=== PATIENT | male | born 1935 | race Caucasian/White ===

== ENCOUNTER → 2016-05-31 | Outpatient (CLI) | payer OTHER, MEDICARE ==
[~2016-05-31] MED LIST: ADVIN25/60 INH; ASPI81TA28 PO; CALC-354 PO; CLN200 PO; CLTP PO; FINA5TAB PO; FINA5TAB4 PO; FLM4 PO; GLCSC500400 PO; GLUC1CAP35 PO; INDA1TAB3 PO; INDA2.5T PO; METO25TA56 PO; MULT-506 PO; NTRGSL/4 UT; OMEG10007 PO; POTA10CA28 PO; SULI200T4 PO; TAMS0.4C38 PO; VALA1TAB31 PO
[2016-05-31 16:31] LABS: BASO % 0.6 %; BASO ABS # 0.04 K/uL (0-0.2); COMPLETE YES; EOS % 2.7 %; HEMATOCRIT 39.5 % (42-52); IG% 0.1 %; LYMPH % 34.6 %; LYMPH ABS # 2.35 K/uL (1.2-3.4); MEAN CELL VOLUME 87.2 fL (80-100); MEAN CORPUSCULAR HEMOGLOBIN 31.6 pg (25-34); MEAN CORPUSCULAR HGB CONC 36.2 g/dl (32-36); MONO % 9.3 %; NEUT % 52.7 %; PLATELET COUNT 155 K/uL (130-400); RED BLOOD COUNT 4.53 M/uL (4.7-6.1); WHITE BLOOD COUNT 6.79 K/uL (4.8-10.8)
[2016-05-31 16:41] LABS: URINE APPEARANCE CLEAR (CLEAR); URINE BILIRUBIN NEG (NEG); URINE COLOR YELLOW; URINE NITRITE NEG (NEG); URINE SPECIFIC GRAVITY 1.024 (1.000-1.030); UROBILINOGEN NEG (NEG)
[2016-05-31 16:44] LABS: MANUAL MICROSCOPIC REQUIRED? NO; REVIEW REQ? NO
[2016-05-31 16:45] LABS: BLOOD UREA NITROGEN 20 mg/dl (7-18); BUN/CREATININE RATIO 16.9 (10-20); CALCIUM 9.2 mg/dl (8.5-10.1); CARBON DIOXIDE 27 mmol/L (21-32); CHLORIDE 105 mmol/L (98-107); GLUCOSE 118 mg/dl (70-99); POTASSIUM 3.5 mmol/L (3.5-5.1); SODIUM 142 mmol/L (136-145)
[2016-06-01 06:24] LABS: ESTIMATED AVERAGE GLUCOSE 137 mg/dl; HA1C FLAG Normal (Normal)
== END | disposition home or self-care (01) ==
LOC: C.LAB1850 14:38
PROVIDERS: ATTEND Internal Medicine
DX: E11.9 Type 2 diabetes mellitus without complications (principal)

== ENCOUNTER 2016-08-28 10:26 | Emergency (ER) | payer OTHER, MEDICARE ==
[~2016-08-28] VITALS: Ht 177.8 cm; Wt 78.8 kg
[~2016-08-28 10:26] MED LIST changes: -CALC-354 PO; -FINA5TAB4 PO; -GLUC1CAP35 PO; -INDA2.5T PO; -SULI200T4 PO; -TAMS0.4C38 PO; -VALA1TAB31 PO
[2016-08-28 10:40] VITALS: TEMP 36.5; Ht 177.8 cm; Wt 78.8 kg
[2016-08-28] MEDS ORDERED: VALA1TAB31 PO (11:19)
[2016-08-28 11:24] VITALS: BP 128/67; PULSE 58; O2SAT 92
[2016-08-28] MEDS ORDERED: CALC-354 PO (11:26)
[2016-08-28] MEDS ORDERED: NTRGSL/4 UT (11:26)
[2016-08-28] MEDS ORDERED: MULT-506 PO (11:26)
[2016-08-28] MEDS ORDERED: INDA2.5T PO (11:26)
[2016-08-28] MEDS ORDERED: FINA5TAB4 PO (11:26)
[2016-08-28] MEDS ORDERED: GLUC1CAP35 PO (11:26)
[2016-08-28] MEDS ORDERED: POTA10CA28 PO (11:26)
[2016-08-28] MEDS ORDERED: ADVIN25/60 INH (11:26)
[2016-08-28] MEDS ORDERED: METO25TA56 PO (11:26)
[2016-08-28] MEDS ORDERED: ASPI81TA28 PO (11:26)
[2016-08-28] MEDS ORDERED: TAMS0.4C38 PO (11:26)
[2016-08-28] MEDS ORDERED: SULI200T4 PO (11:26)
[2016-08-28] MEDS ORDERED: OMEG10007 PO (11:26)
--- NOTE | 2016-08-28 11:29 | EMERGENCY ROOM VISIT NOTE ---
ED Visit Note First contact with patient: 10:49 Patient seen and evaluated bedside with physician podiatric assistant. Discussed diagnosis, treatment, and plan. Agree with physician podiatric assistant's assessment and plan at this time. All questions answered bedside for the patient and he was agreeable with plan. Discussed symptoms watch and return for.
--- NOTE | 2016-09-07 17:58 | EMERGENCY ROOM VISIT NOTE ---
History First contact with patient: 10:49 Chief Complaint: RASH Stated Complaint: RASH AROUND BELT AREA History of Present Illness The patient is a 81 year old white male who presents to the Emergency Room with complaints of any rash on the right side of his body extending from his groin to his low back. Symptoms started yesterday. The rash has become worse today. He states he did go to Dr. Aguilar's office and was referred to the ER for management. He denies any pain at this time. He states he has had shingles vaccine. No prior history of shingles. 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 He denies any other cold symptoms. He denies any stress. No fevers. He denies any other complaints. Review of Systems REVIEW OF SYSTEM: HEENT: No dizziness, visual problems, hearing loss, or tinnitus. There is no difficulty swallowing and no oral lesions are present. LYMPH: No adenopathy. PULMONARY: No cough, shortness of breath, sputum production or hemoptysis. CARDIOVASCULAR: No chest pain, shortness of breath or peripheral edema. GASTROINTESTINAL: No diarrhea, constipation, nausea, vomiting, or abdominal pain. GENITOURINARY: No dysuria, frequency, urgency or nocturia. NEUROLOGIC: No weakness, muscle tenderness, epilepsy or history of neurological problems. MUSCULOSKELETAL: No history of joint tenderness/swelling. Positive history of arthritis and arthralgias. SKIN: No rashes or lesions. PSYCHIATRIC: Positive history of anxiety. ENDOCRINE: No history of thyroid disorders, or abnormal hair growth. Past Medical/Surgical History Medical Problems: (1) Anxiety disorder (2) Atrial fibrillation (3) Borderline diabetes (4) BPH (benign prostatic hyperplasia) (5) CAD (coronary artery disease) (6) Dyslipidemia (7) History of spinal stenosis (8) HTN (hypertension) (9) Multinodular thyroid (10) Prinzmetal angina (11) SBO (small bowel obstruction) (12) Spinal stenosis, lumbar Surgical Problems: (1) History of lumbar surgery Family History Diabetes mellitus FH: cancer FH: heart disease Hypertension Social History Smoking Status: Never Smoker Smokeless Tobacco Use: No Alcohol Use: none Drug Use: none Marital Status: Housing Status: lives with significant other Occupation Status: retired Current/Historical Medications Scheduled Aspirin (Aspirin Ec), 81 MG PO DAILY Calcium Carbonate-Cholecalcife (Caltrate 600+D), 1 TAB PO DAILY Finasteride (Proscar), 5 MG PO QPM Fish Oil ([place]-3), 1 CAP PO QAM Fluticasone Prop/Salmeterol (Advair Diskus 250/50 60 Dose), 1 PUFF INH BID Rfnodurnkow-Dnenmskgewn-Lrc C- (Glucosamine Chondroitin), 1 CAP PO BID Indapamide (Indapamide), 1 TAB PO QAM Metoprolol Tartrate (Lopressor) (Lopressor), 25 MG PO BID Multivitamin (Multivitamin), 1 TAB PO DAILY Nitroglycerin (Nitrostat), 0.4 MG UT PRN Potassium Chloride (Micro-K Ext Rel), 10 MEQ PO BID Sulindac ([place]or[place]), 200 MG PO BID Tamsulosin Hcl (Flomax), 0.4 MG PO HS Allergies Coded Allergies: Calcium Channel Blockers (Verified Allergy, Mild, CHEST PAIN, 05/18/16) Amoxicillin (Unverified Allergy, Unknown, UPSET STOMACH, 05/18/16) Clavulanic Acid (Unverified Allergy, Unknown, UPSET STOMACH, 05/18/16) Statins (Verified Allergy, Unknown, increased ck levels, muscle pain, 05/18) Physical Exam Vital Signs Date Time Temp Pulse Resp B/P (MAP) Pulse Ox O2 Delivery O2 Flow Rate FiO2 08/28/16 11:24 58 20 128/67 92 Room Air 08/28/16 10:40 36.5 62 18 142/74 96 Room Air Pain Rating (0-10): 0 Physical Exam Gen.: Well-developed, well-nourished, elderly white male, in no acute distress. Laying on a bed. Somewhat hard of hearing. Pleasant. Skin:Warm and dry with fair turgor. Rashes present along the lower abdomen into the groin, extending along the side and into the low back. It follows a generalized T12 dermatome pattern and does not cross midline front or back. No other areas of involvement. Small macules without full vesicles. There do appear to be a few that are a vesicular type appearance. They do hillary. No ecchymosis or edema. The patient is not diaphoretic. No abrasions. Heart: Heart RRR. No MGR. Peripheral pulses are 2+. Lungs: Lungs are clear to auscultation. No crackles rhonchi or wheezing. Good air movement. The patient is able to take a deep breath. Abdomen: Abdomen was inspected, auscultated, and palpated. Bowel sounds present x 4. Soft, nontender to palpation. No hepato-splenomegaly. No masses noted. No CVA tenderness. Musculoskeletal: No pain with palpation over the spine. Gross motor function of the upper and lower extremities is intact and unremarkable. Neurologic: Gross sensation is intact across the upper and lower extremities by soft touch. Medical Decision & Procedures ED Course Patient and his were educated regarding today's findings. Conservative care measures were discussed. Likelihood of shingles was discussed. His reaction may be needed or blunted because of the previous shingles vaccine. He does not have the typical herpetic pain. I will start him on Valtrex 3 times a day. Prescription was provided. He may also use Benadryl every 6 hours and Zantac once per day to help with his pruritus. Avoid scratching the rash. Follow-up with his PCP for reexamination. Return to the ED for any acute worsening of symptoms or acute pain. Importance of avoiding immunocompromised individuals, women, and very young children was discussed. Patient was seen in conjunction with Dr. Shah, who also evaluated the patient and concurred with today's diagnosis and treatment plan. Medical Decision Possibility of viral exanthem, shingles, contact dermatitis, food reaction, and heat rash were considered. Impression Primary Impression: Shingles outbreak Departure Information Dispostion Home / Self-Care Condition FAIR Forms BENADRYL USE, WORK / SCHOOL INSTRUCTIONS, HOME CARE DOCUMENTATION FORM, IMPORTANT VISIT INFORMATION Patient Instructions Shingles Herpes Zoster, [facility] Additional Instructions valtrex daily avoid scratching the rash. Benadryl 25 mg every 6 hours as needed for itch Zantac 150 mg once a day as needed for itch Avoid contact with women, infants, and immunocompromised, such as chemotherapy patients Follow-up with your PCP this week for reexamination Return to the ED for any other concerns or worsening symptoms Problem Qualifiers Primary Impression: Shingles outbreak Herpes zoster complications: without complications Qualified Codes: B02.9 - Zoster without complications
== END 2016-08-28 11:35 | disposition home or self-care (01) ==
LOC: C.EDB 10:29 → C.EDC 11:35
DX: B02.9 Zoster without complications (principal); F41.9 Anxiety disorder, unspecified; I48.91 Unspecified atrial fibrillation; R73.03 Prediabetes; N40.0 Benign prostatic hyperplasia without lower urinary tract symptoms; I25.10 Atherosclerotic heart disease of native coronary artery without angina pectoris; E78.5 Hyperlipidemia, unspecified; I10 Essential (primary) hypertension; Z83.3 Family history of diabetes mellitus; Z80.9 Family history of malignant neoplasm, unspecified; Z82.49 Family history of ischemic heart disease and other diseases of the circulatory system; Z79.82 Long term (current) use of aspirin; Z79.899 Other long term (current) drug therapy

== ENCOUNTER → 2016-09-13 | Outpatient (CLI) | payer OTHER, MEDICARE ==
[~2016-09-13] MED LIST changes: +CALC-354 PO; -CLN200 PO; -CLTP PO; -FINA5TAB PO; +FINA5TAB4 PO; -FLM4 PO; -GLCSC500400 PO; +GLUC1CAP35 PO; -INDA1TAB3 PO; +INDA2.5T PO; +SULI200T4 PO; +TAMS0.4C38 PO
[2016-09-14 06:51] LABS: ESTIMATED AVERAGE GLUCOSE 128 mg/dl; HA1C FLAG Normal (Normal)
== END | disposition home or self-care (01) ==
LOC: C.LAB1850 15:19
PROVIDERS: ATTEND Internal Medicine
DX: E11.9 Type 2 diabetes mellitus without complications (principal)

== ENCOUNTER → 2017-01-31 | Outpatient (CLI) | payer OTHER, MEDICARE ==
[2017-01-31 10:39] LABS: BASO % 0.6 %; BASO ABS # 0.04 K/uL (0-0.2); COMPLETE YES; EOS % 1.5 %; HEMATOCRIT 41.5 % (42-52); IG% 0.3 %; LYMPH ABS # 2.34 K/uL (1.2-3.4); MEAN CELL VOLUME 87.9 fL (80-100); MEAN CORPUSCULAR HEMOGLOBIN 31.1 pg (25-34); MEAN CORPUSCULAR HGB CONC 35.4 g/dl (32-36); MEAN PLATELET VOLUME 10.5 fL (7.4-10.4); MONO % 7.5 %; NEUT % 56.1 %; PLATELET COUNT 167 K/uL (130-400); RED BLOOD COUNT 4.72 M/uL (4.7-6.1); WHITE BLOOD COUNT 6.89 K/uL (4.8-10.8)
[2017-01-31 10:53] LABS: ALT/SGPT 35 U/L (12-78); AST/SGOT 28 U/L (15-37); BLOOD UREA NITROGEN 14 mg/dl (7-18); BUN/CREATININE RATIO 11.3 (10-20); CARBON DIOXIDE 29 mmol/L (21-32); CHLORIDE 100 mmol/L (98-107); CREATININE 1.27 mg/dl (0.60-1.40); GLUCOSE 117 mg/dl (70-99); POTASSIUM 3.5 mmol/L (3.5-5.1); SODIUM 134 mmol/L (136-145); URIC ACID 5.5 mg/dl (2.6-7.2)
[2017-01-31 11:04] LABS: CHOLESTEROL 193 mg/dl (0-200); CHOLESTEROL/HDL RATIO 5.4; HDL CHOLESTEROL 36 mg/dl; LDL CHOLESTEROL CALCULATED 132 mg/dl; PROSTATE SPECIFIC ANTIGEN 0.768 ng/ml (0.000-4.000); TRIGLYCERIDES 125 mg/dl (0-150); VERY LOW DENSITY LIPOPROT CALC 25 mg/dl
[2017-01-31 11:05] LABS: URINE APPEARANCE CLEAR (CLEAR); URINE BILIRUBIN NEG (NEG); URINE COLOR YELLOW; URINE NITRITE NEG (NEG); URINE PH 6.5 (4.5-7.5); URINE SPECIFIC GRAVITY 1.014 (1.000-1.030); UROBILINOGEN NEG (NEG)
[2017-01-31 11:36] LABS: ESTIMATED AVERAGE GLUCOSE 131 mg/dl; HA1C FLAG Normal (Normal)
[2017-01-31 14:32] LABS: MANUAL MICROSCOPIC REQUIRED? NO; REVIEW REQ? NO
== END | disposition home or self-care (01) ==
LOC: C.LAB1850 08:58
PROVIDERS: ATTEND Internal Medicine
DX: N40.1 Benign prostatic hyperplasia with lower urinary tract symptoms (principal); M48.00 Spinal stenosis, site unspecified

== ENCOUNTER → 2017-06-24 | Outpatient (CLI) | payer OTHER, MEDICARE ==
[2017-06-24 12:57] LABS: HEMOGLOBIN A1C 6.2 % (4.5-5.6)
== END | disposition home or self-care (01) ==
LOC: C.LAB1850 11:28
PROVIDERS: ATTEND Internal Medicine
DX: E11.9 Type 2 diabetes mellitus without complications (principal)

== ENCOUNTER → 2017-10-24 | Outpatient (CLI) | payer OTHER, MEDICARE ==
[2017-10-24 10:40] LABS: BASO % 0.6 %; BASO ABS # 0.03 K/uL (0-0.2); HEMATOCRIT 40.5 % (42-52); HEMOGLOBIN 14.4 g/dL (14.0-18.0); IG# 0.01 K/uL (0.00-0.02); LYMPH % 36.1 %; MEAN CELL VOLUME 87.1 fL (80-100); MEAN CORPUSCULAR HGB CONC 35.6 g/dl (32-36); MEAN PLATELET VOLUME 10.9 fL (7.4-10.4); MONO % 8.2 %; MONO ABS # 0.41 K/uL (0.11-0.59); NEUT % 52.9 %; NEUT ABS # 2.64 K/uL (1.4-6.5); PLATELET COUNT 163 K/uL (130-400); RED CELL DISTRIBUTION WIDTH CV 12.9 % (11.5-14.5); RED CELL DISTRIBUTION WIDTH SD 41.1 fL (36.4-46.3); WHITE BLOOD COUNT 4.99 K/uL (4.8-10.8)
[2017-10-24 11:17] LABS: BLOOD UREA NITROGEN 19 mg/dl (7-18); CALCIUM 8.7 mg/dl (8.5-10.1); CARBON DIOXIDE 24 mmol/L (21-32); CREATININE 1.29 mg/dl (0.60-1.40); GLUCOSE 132 mg/dl (70-99); POTASSIUM 3.9 mmol/L (3.5-5.1); SODIUM 136 mmol/L (136-145)
[2017-10-24 12:36] LABS: HEMOGLOBIN A1C 6.2 % (4.5-5.6)
== END | disposition home or self-care (01) ==
LOC: C.LAB1850 09:32
PROVIDERS: ATTEND Internal Medicine
DX: Z12.5 Encounter for screening for malignant neoplasm of prostate (principal); E11.9 Type 2 diabetes mellitus without complications; N40.1 Benign prostatic hyperplasia with lower urinary tract symptoms

== ENCOUNTER 2023-12-27 07:23 | Observation (INO) ==
[2023-12-27 08:53] LABS: Basophils # (auto) 0.04 K/uL (0.00-0.20); Basophils % (auto) 0.4 %; Eosinophils # (auto) 0.03 K/uL (0.00-0.50); Eosinophils % (auto) 0.3 %; Hematocrit (blood only) 39.4 % (42.0-52.0); Hemoglobin 13.6 g/dl (14.0-18.0); Immature Granulocytes # (auto) 0.04 K/uL (0.01-0.20); Immature Granulocytes % (auto) 0.4 %; Lymphocytes # (auto) 1.35 K/uL (1.20-3.40); Lymphocytes % (auto) 14.6 %; Mean Corpuscular Hemoglobin 27.6 pg (25.0-34.0); Mean Corpuscular Hgb Conc 34.5 g/dL (32.0-36.0); Mean Corpuscular Volume 79.9 fL (80.0-100.0); Mean Platelet Volume 9.4 fL (9.4-12.4); Monocytes # (auto) 0.69 K/uL (0.11-0.59); Monocytes % (auto) 7.4 %; Neutrophils # (auto) 7.12 K/uL (1.40-6.50); Neutrophils % (auto) 76.9 %; Platelet Count 194 K/uL (130-400); RDW Coefficient of Variation 12.8 % (11.5-14.5); RDW Standard Deviation 36.7 fL (36.4-46.3); Red Blood Count 4.93 M/uL (4.70-6.10); White Blood Count 9.27 K/ul (4.8-10.8)
--- NOTE | 2023-12-27 08:55 | XRay Report ---
XR chest 1V portable CLINICAL HISTORY: Choking, aspiration COMPARISON STUDY: Chest radiograph July 31, 2015. Chest CT August 15, 2007. FINDINGS: There is mild elevation of the left hemidiaphragm. Lungs are clear. There is no pneumothora x or pleural effusion. Cardiac size is normal. Mediastinal contours are normal. There is no evidence for pulmonary edema. IMPRESSION: No acute cardiopulmonary findings. ACT 112: Negative or not required by law. Electronically signed by: Jean-Pierre Calderon M.D. 12/27/2023 8:53 AM
[2023-12-27 09:13] LABS: BUN Creatinine Ratio 11.6 (10-20); Calcium 9.4 mg/dl (8.6-10.3); Creatinine Clr Calc Pharmacy 44.4 ml/min; Potassium 4.3 mmol/L (3.5-5.1)
--- NOTE | 2023-12-27 09:27 | Emergency Department Note ---
Impression & Plan Dysphagia ED Provider Note NAME: STACI MORALES AGE: 88 SEX: M : 1935 ARRIVES VIA: Walk-In INFORMANT: Patient, ED PROVIDER(S): Scarlett Martinez MD CHIEF COMPLAINT: Choking HPI: 88-year-old male presented for choking episode. Patient has noted progressive worsening of his images swallow. He had a barium swallow which showed delayed gastric emptying. He has had slowly progressive worsening of his symptoms and last night was unable to eat food as result. Sounds tolerate p.o. He does feel like he is choking when he does eat. He told on his coffee this morning. ROS: See above HPI for pertinent positives & negatives. A total of 10 systems reviewed and were otherwise negative. PAST MEDICAL HISTORY: See Below PAST SURGICAL HISTORY: See Below FAMILY HISTORY: See Below SOCIAL HISTORY: See Below HOME MEDICATIONS: See Below ALLERGIES: See Below VITALS: See Below PHYSICAL EXAMINATION: General: resting comfortably in no acute distress Head: Normocephalic and atraumatic Eyes: Normal inspection, extraocular muscles intact Ear, nose, throat: Normal external exam Neck: Normal range of motion Respiratory: lungs clear to auscultation bilaterally Cardiovascular: Regular rate/rhythm, no murmur GI: soft, nontender, no guarding or rebound Extremities: nontender, moves all extremities Neuro: The patient awake and alert, appropriately conversive, no focal deficits, symmetric faces Skin: Warm, dry, and intact MEDICAL DECISION MAKING: This is a an 88-year-old male presenting for choking episodes. Patient has noted worsening symptoms. Scheduled GI in late January. Family state that he is unable to eat or drink at this time due to his choking episodes. They are progressively worsening with acute worsening of the past 1 day. -Bloodwork is reviewed showing no significant leukocytosis, anemia, electrolyte or creatinine abnormality. Slight hyponatremia is noted otherwise. -CT imaging is currently negative for acute process in the neck to explain his current dysphagia -With patient being unable to eat tolerate food/water and having episodes of aspiration, will admit for further workup -Chest Xray independently interpreted by me showing no pneumothorax, focal opacity, or pleural effusions. Differential diagnosis: Dysphagia, aspiration pneumonia, esophageal swelling ER treatment provided: See below Independent History obtained from: [facility] interpreted by me: ECG: None Cardiac Monitoring: An order was placed for continuous cardiac monitoring. The monitor shows a rate of 75 with sinus rhythm. Laboratory studies: As stated above and show below. Imaging studies: See below. Past Med/Surg History Problem List (Updated 12/27/23 @ 15:17 by Scarlett Martinez MD) Dysphagia (Acute) Hyponatremia Esophageal dysmotility Per [place] Video Swallow Oct. 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 Chronic obstructive pulmonary disease (Chronic) Lightheadedness (Acute) Chronic sinusitis (Chronic) Enlarged prostate with lower urinary tract symptoms (LUTS) (Chronic) Hypercholesterolemia (Chronic) Osteoarthritis (Chronic) Polyneuropathy (Chronic) Anxiety disorder (Chronic) CAD (coronary artery disease) (Chronic) Medical History History of spinal stenosis Lumbar postlaminectomy syndrome Multinodular thyroid Sensorineural hearing loss (SNHL) of both ears Spinal stenosis, lumbar Surgical History History of lumbar surgery Family History Denies family history of Ovarian cancer Prostate cancer Myocardial infarction Breast cancer Colorectal cancer Social History Smoking Status: Never smoker Second Hand Exposure: Yes; Do You Dip or Chew Tobacco: No; Hx Alcohol Use: No Hx Substance Use: No Preferred Language: Cymro Visual Impairment: No Limitations Hearing Ability: Use of Hearing Aid marital status: / Current Living Situation: Family current occupational status: retired Feels Safe at Home: Yes Childhood Exposure to Second-Hand Smoke: Yes Dental Care, Regularly: No Physical Activity Frequency: Does not Exercise Seatbelt Use: always Sunscreen Use: Yes Allergies Allergies Allergy/AdvReac Type Severity Reaction Status Date / Time amoxicillin Allergy Unknown UPSET Verified 11/11/23 10:04 STOMACH clavulanic acid Allergy Unknown UPSET Verified 11/11/23 10:04 STOMACH Nmnakfk-CLO-YuD Reductase Allergy Unknown increased Verified 11/11/23 10:04 Inhibitor ck levels, [Ufcfvrs-Mzh-Qdp Reductase muscle pain Inhibitor] Calcium Channel Blockers Allergy Mild CHEST PAIN Uncoded 11/11/23 10:04 Home Meds Home Medications Medication Instructions Recorded Confirmed aspirin 81 mg chewable tablet 81 mg PO DAILY 11/22/17 12/27/23 dlrcqwvxuums-ovkcpkrc-lqslon tablet 1 tab PO DAILY 11/22/17 12/27/23 calcium carbonate-vitamin D3 1 tab PO DAILY 03/22/19 12/27/23 [Calcium 600 with Vitamin D3] glucos sul 6RJg-exk-xvodw-C-Mn 1 tab PO DAILY 03/22/19 12/27/23 [Glucosamine Chondroitin] Previous Rx's Medication Instructions Recorded meclizine 25 mg tablet 25 mg PO DAILY PRN dizziness or 07/31/21 vertigo #30 tabs fluticasone 250 mcg-salmeterol 50 1 inh inhalation BID #3 ea 02/08/23 mcg/dose blistr powdr for inhalation nitroglycerin 0.4 mg sublingual 0.4 mg sublingual Q5M PRN chest 02/08/23 tablet (Nitrostat) pain #30 tabs finasteride 5 mg tablet 5 mg PO DAILY #90 tabs 04/22/23 tamsulosin 0.4 mg capsule 0.4 mg PO DAILY #90 caps 04/22/23 sertraline 50 mg tablet 50 mg PO DAILY #90 tabs 04/27/23 metoprolol succinate 50 mg 50 mg PO DAILY #90 tabs 10/18/23 tablet,extended release 24 hr sulindac 200 mg tablet 100 mg (1/2 x 200 mg) PO DAILY PRN 10/18/23 pain #45 tabs Results & Data (ED) Vital Signs Vital Signs - 24 hr 12/27/23 07:30 12/27/23 07:34 12/27/23 10:33 Temperature 36.8 C Temperature Source Temporal Artery Scan Pulse Rate 94 H Pulse Rate [Right Finger] 81 Pulse Strength [Right Finger] Respiratory Rate 18 16 Respiratory Effort / Characteristics Non-Labored Spontaneous Non-Labored Spontaneous Non-Labored Respiratory Depth Normal Normal Normal Respiratory Pattern Regular Blood Pressure 169/83 H Blood Pressure [Right Arm] Blood Pressure Mean 111 Blood Pressure Mean [Right Arm] Blood Pressure Position [Right Arm] Pulse Oximetry 97 97 Oxygen Delivery Method Room Air Room Air Sepsis Recent Fever Within 48 Hours No Sepsis New/Unexplained Change in Mental Status No Sepsis Action Taken by Nursing No Action Required 12/27/23 12:00 Temperature Temperature Source Pulse Rate Pulse Rate [Right Finger] 77 Pulse Strength [Right Finger] Normal Respiratory Rate 18 Respiratory Effort / Characteristics Non-Labored Spontaneous Respiratory Depth Normal Respiratory Pattern Regular Blood Pressure Blood Pressure [Right Arm] 145/84 H Blood Pressure Mean Blood Pressure Mean [Right Arm] 104 Blood Pressure Position [Right Arm] Sitting Pulse Oximetry 93 Oxygen Delivery Method Room Air Sepsis Recent Fever Within 48 Hours Sepsis New/Unexplained Change in Mental Status Sepsis Action Taken by Nursing Laboratory Data 12/27/23 08:34 12/27/23 08:34 Lab Results 12/27/23 Range/Units 08:34 WBC 9.27 (4.8-10.8) K/ul RBC 4.93 (4.70-6.10) M/uL Hgb 13.6 L (14.0-18.0) g/dl Hct 39.4 L (42.0-52.0) % MCV 79.9 L (80.0-100.0) fL MCH 27.6 (25.0-34.0) pg MCHC 34.5 (32.0-36.0) g/dL RDW Std Deviation 36.7 (36.4-46.3) fL RDW Coeff of Alla 12.8 (11.5-14.5) % Plt Count 194 (130-400) K/uL MPV 9.4 (9.4-12.4) fL Immature Gran % (Auto) 0.4 % Neut % (Auto) 76.9 % Lymph % (Auto) 14.6 % Morrow % (Auto) 7.4 % Eos % (Auto) 0.3 % Baso % (Auto) 0.4 % Neut # (Auto) 7.12 H (1.40-6.50) K/uL Lymph # (Auto) 1.35 (1.20-3.40) K/uL Morrow # (Auto) 0.69 H (0.11-0.59) K/uL Eos # (Auto) 0.03 (0.00-0.50) K/uL Baso # (Auto) 0.04 (0.00-0.20) K/uL Immature Gran # (Auto) 0.04 (0.01-0.20) K/uL Sodium 131 L (136-145) mmol/L Potassium 4.3 (3.5-5.1) mmol/L Chloride 99 (98-107) mmol/L Carbon Dioxide 24 (21-32) mmol/L Anion Gap 8 (3-11) BUN 14 (6-23) mg/dl Creatinine 1.21 (0.6-1.4) mg/dl Est Cr Clr Drug Dosing 44.4 ml/min eGFR 57.95 BUN/Creatinine Ratio 11.6 (10-20) Glucose 120 H (70-99(Fasting)) mg/dl Calcium 9.4 (8.6-10.3) mg/dl Administered Medications Discontinued Medications Pantoprazole Sodium (Protonix) 40 mg in 10 mls @ 5 mls/min IV NOW ONE Stop: 12/27/23 12:01 Last Admin: 12/27/23 12:37 Dose: 5 mls/min Documented By: MELONIE Ioversol (Optiray 320 100ml) 94 ml IV ONCE ONE Stop: 12/27/23 09:37 Last Admin: 12/27/23 09:36 Dose: 94 ml Documented By: SCOTTY Imaging Data Radiologist's Impression: Chest X-Ray 12/27/23 08:23 XR chest 1V portable CLINICAL HISTORY: Choking, aspiration COMPARISON STUDY: Chest radiograph July 31, 2015. Chest CT August 15, 2007. FINDINGS: There is mild elevation of the left hemidiaphragm. Lungs are clear. There is no pneumothorax or pleural effusion. Cardiac size is normal. Mediastinal contours are normal. There is no evidence for pulmonary edema. IMPRESSION: No acute cardiopulmonary findings. ACT 112: Negative or not required by law. Electronically signed by: Jean-Pierre Calderon M.D. 12/27/2023 8:53 AM Soft Tissue Neck CT 12/27/23 08:57 CT soft tissue neck w con CLINICAL HISTORY: Difficulty swallowing Technique: Axial CT images of the soft tissues of the neck were obtained following intravenous administration of 100 cc of Omnipaque 300. Automated dose lowering techniques and/or adjustment according to patient size were utilized for this exam. Comparison: None available at the time of this dictation. Findings: The oropharynx, hypopharynx, larynx, and trachea are patent. Subcentimeter lymph nodes are seen. The parotid glands, submandibular glands, and thyroid gland are unremarkable. Imaged portions of the brain parenchyma are unremarkable. Sphenoid sinus disease is seen. Impression: No acute abnormality and in particular no mass lesion to explain difficulty swallowing. ACT 112: Negative or not required by law. Electronically signed by: Abimael Marquez M.D. 12/27/2023 10:18 AM Discharge Plan Visit Data Chief Complaint: Choking Stated Complaint: CHOKING, SWALLOWING ISSUE ED Provider: Scarlett Martinez Discharge Problem: Dysphagia Patient Disposition: Admitted As Inpatient Discharge Instructions Interventions: ED Discharge Assessment Last Done: 12/27/23 14:26
[2023-12-27] MEDS: OPTIRAY 320 100ml IV ONE (09:36)
--- NOTE | 2023-12-27 10:20 | CT Scan Report ---
CT soft tissue neck w con CLINICAL HISTORY: Difficulty swallowing Technique: Axial CT images of the soft tissues of the neck were obtained following intravenous admini stration of 100 cc of Omnipaque 300. Automated dose lowering techniques and/or adjustment according t o patient size were utilized for this exam. Comparison: None available at the time of this dictation. Findings: The oropharynx, hypopharynx, larynx, and trachea are patent. Subcentimeter lymph nodes are seen. The parotid glands, submandibular glands, and thyroid gland are unremarkable. Imaged portions of the brain parenchyma are unremarkable. Sphenoid sinus disease is seen. Impression: No acute abnormality and in particular no mass lesion to explain difficulty swallowing. ACT 112: Negative or not required by law. Electronically signed by: Abimael Marquez M.D. 12/27/2023 10:18 AM
--- NOTE | 2023-12-27 11:52 | History & Physical Report ---
Date of Service December 27, 2023 Assessment & Plan (1) Esophageal dysmotility: Plan: Presents with worsening swallowing function over the last 24 hours. Recent Fluoro Swallow Study 11/22/23 - mild oral stage dysphagia and esophageal dysmotility and reflux. Recommend Regular diet, thin liquids with extra sauce/gravy. Pending outpatient GI follow up. Neck CT: No acute abnormality, no mass CXR: no acute cardiopulmonary findings keep n.p.o., strict Protonix 40 mg IV Consult GI -Pt is on inhaled corticosteroid - risk for thrush -CIS COORDINATOR eval deferred on admission pending GI consult and recent CIS COORDINATOR eval (2) Hyponatremia: Plan: Mild - 131 on admission asymptomatic, recent running 133-134 AM BMP (3) Chronic kidney disease, stage 3: Plan: Cr 1.21, GFR 44 on admission Avoid nephrotoxic agents Plan Chronic stable medical conditions: * CAD - aspirin, metoprolol held until GI evaluation * A-fibmetoprolol as above, not on anticoagulation * BPHfinasteride, tamsulosin held until GI evaluation * mental health - sertraline held until GI evaluation Dispo: med/tele DVT proh: SCDs, consider chemical proph is prolonged stay CODE STATUS: DNR/DNI History of Present Illness Primary Care Provider: Candelaria Smith MD Aguayo is 88M with a past medical hx of CAD, hypertension, A-fib, anxiety and CKD. who presents to the ER, accompanied by son and daughter, after worsening swallowing function over the last 24 hours. He was seen by his PCP on 11/10 and reported swallowing dysfunction was ordered a video swallow study at that time that had concerns for esophageal dysmotility but recommended thin liquids normal diet with extra gravy/sauces. Starting overnight he woke up in the middle of the night and had difficulty swallowing water. Son reports that he could hear him coughing and choking from the next room and reports that Aguayo asked to see his doctor multiple times. Since then Aguayo has been able to eat some pudding and take his medications. No recent changes in medications. No changes in baseline mental status. No signs of infection no abdominal pain no urinary symptoms no cough or fevers at home. Recent changes in medications: No Take medications today: yes Alcohol: no smoking: no CPAP: no Code Status: DNR/DNI ER course: none Allergies Allergy/AdvReac Type Severity Reaction Status Date / Time amoxicillin Allergy Unknown UPSET Verified 11/11/23 10:04 STOMACH clavulanic acid Allergy Unknown UPSET Verified 11/11/23 10:04 STOMACH Wyfexjc-CPH-MjQ Reductase Allergy Unknown increased Verified 11/11/23 10:04 Inhibitor ck levels, [Zcenfmj-Txn-Mzt Reductase muscle pain Inhibitor] Calcium Channel Blockers Allergy Mild CHEST PAIN Uncoded 11/11/23 10:04 Home Medications Medication Instructions Recorded Confirmed Type aspirin 81 mg chewable tablet 81 mg PO DAILY 11/22/17 12/27/23 History cdoohusqxwmm-damaforg-ccqyza tablet 1 tab PO DAILY 11/22/17 12/27/23 History calcium carbonate-vitamin D3 1 tab PO DAILY 03/22/19 12/27/23 History [Calcium 600 with Vitamin D3] glucos sul 7DZh-odx-lblqv-C-Mn 1 tab PO DAILY 03/22/19 12/27/23 History [Glucosamine Chondroitin] meclizine 25 mg tablet 25 mg PO DAILY PRN dizziness or 07/31/21 12/27/23 Rx vertigo #30 tabs fluticasone 250 mcg-salmeterol 50 1 inh inhalation BID #3 ea 02/08/23 12/27/23 Rx mcg/dose blistr powdr for inhalation nitroglycerin 0.4 mg sublingual 0.4 mg sublingual Q5M PRN chest 02/08/23 12/27/23 Rx tablet (Nitrostat) pain #30 tabs finasteride 5 mg tablet 5 mg PO DAILY #90 tabs 04/22/23 12/27/23 Rx tamsulosin 0.4 mg capsule 0.4 mg PO DAILY #90 caps 04/22/23 12/27/23 Rx sertraline 50 mg tablet 50 mg PO DAILY #90 tabs 04/27/23 12/27/23 Rx metoprolol succinate 50 mg 50 mg PO DAILY #90 tabs 10/18/23 12/27/23 Rx tablet,extended release 24 hr sulindac 200 mg tablet 100 mg (1/2 x 200 mg) PO DAILY PRN 10/18/23 12/27/23 Rx pain #45 tabs Past Med/Surg History Problem List (Updated 12/27/23 @ 13:38 by Kenzie Mustafa PA-C) Hyponatremia Esophageal dysmotility Per [place] Video Swallow 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 Chronic obstructive pulmonary disease (Chronic) Lightheadedness (Acute) Chronic sinusitis (Chronic) Enlarged prostate with lower urinary tract symptoms (LUTS) (Chronic) Hypercholesterolemia (Chronic) Osteoarthritis (Chronic) Polyneuropathy (Chronic) Anxiety disorder (Chronic) CAD (coronary artery disease) (Chronic) Medical History History of spinal stenosis Lumbar postlaminectomy syndrome Multinodular thyroid Sensorineural hearing loss (SNHL) of both ears Spinal stenosis, lumbar Surgical History History of lumbar surgery Family History Denies family history of Ovarian cancer Prostate cancer Myocardial infarction Breast cancer Colorectal cancer Social History Smoking Status: Never smoker Second Hand Exposure: Yes; Do You Dip or Chew Tobacco: No; Hx Alcohol Use: No Hx Substance Use: No Preferred Language: Grenadian Visual Impairment: No Limitations Hearing Ability: Use of Hearing Aid marital status: / Current Living Situation: Family current occupational status: retired Feels Safe at Home: Yes Childhood Exposure to Second-Hand Smoke: Yes Dental Care, Regularly: No Physical Activity Frequency: Does not Exercise Seatbelt Use: always Sunscreen Use: Yes Review of Systems Review of Systems: All systems reviewed & are unremarkable except as noted in Subjective Physical Exam Physical Exam: General: NAD, VS as above HEENT: MMM, trachea midline, no obvious masses, non tender to palpation, no lymphadenopathy Resp: normal respiratory effort, lungs clear to auscultation CV: RRR, no murmur, Abd: normal bowel sounds, non tender, no hepatosplenomegaly Extremities: Moves all extremities, no edema Results & Data Results & Data Vital Signs (Past 12 Hours) Vital Signs Temp Pulse Pulse Resp BP Pulse Ox O2 Del Method 12/27/23 10:33 81 16 97 Room Air 12/27/23 07:30 98.2 F 94 H 18 169/83 H 97 Room Air Laboratory Results CBC and chemistry reviewed Diagnostic Findings neck CT and chest x-ray reviewed Supervising Physician Co-Signing Physician Notes Patient seen and examined, chart reviewed, case discussed with Kenzie Mustafa PA-C and I agree with the assessment and plan as above except as otherwise noted Labs and images reviewed 88-year-old male with a history of esophageal dysmotility, hypertension, A-fib, CAD, COPD on ICS who presents for evaluation of an episode of difficulty swallowing. He did have a recent fluoroscopy swallow study 11/18/2023 with mild oral stage dysphagia and esophageal dysmotility and reflux, is recommended for regular diet, thin liquids with applesauce gravy at that time. Patient reports he feels he had acute worsening of the symptoms with a globus feeling in his throat last night which caused him to choke on thin liquids but also felt like he could not swallow normally throughout the evening and morning. He did not regurgitate any food but also feels he could not swallow. CTsoft tissue neck does not show any ductal abnormality/obstruction/masses. Patient is on ICS and is at risk for candidal infection/esophagitis no discrete plaques are seen on the cheeks. Reports he has not had an EGD in the past. Given persistent and worsening symptoms, GIs been consulted to evaluate for possible EGD. Eosinophils are not elevated. Nondistressed at the bedside. Lungs are clear. Agree with above. As patient has recent completed a video swallow will defer CIS COORDINATOR on admission. PG Care Time/CCT Total # of Minutes Spent Total Time Spent with Patient: Total time spent is greater than 50% in coordination of care (as documented) at patient's floor/unit and/or counseling patient: Coding Level of Care Code 14165 INT INP/OBS CARE 2/55MIN Diagnoses Esophageal dysmotility K22.4 Hyponatremia E87.1 Chronic kidney disease, stage 3 N18.30
[2023-12-27] MEDS: PANTOprazole 40 MG/10 ML SYR IV ONE (12:37)
--- NOTE | 2023-12-28 07:56 | Hospitalist Progress Note ---
Date of Service December 28, 2023 Assessment & Plan (1) Esophageal dysmotility: Plan: Presents with worsening swallowing function over the last 24 hours. Recent Fluoro Swallow Study 11/22/23 - mild oral stage dysphagia and esophageal dysmotility and reflux. Recommend Regular diet, thin liquids with extra sauce/gravy. Pending outpatient GI follow up. Neck CT: No acute abnormality, no mass CXR: no acute cardiopulmonary findings keep n.p.o., strict, protonix 40mg IV and GI consulted -Pt is on inhaled corticosteroid - risk for thrush -LEAD MILITARY ANALYST eval deferred on admission pending GI consult and recent LEAD MILITARY ANALYST eval 12/27 Added NS @ 70cc/hr while NPO. Na stable 133, TSH checked and wnl. Protonix IVP daily ordered, GI consulted and messaged this morning and planning for EGD this afternoon. PPI increased to BID s/p EGD w/ Dr Szymanski 12/27 * EGD with one esophageal stenosis which was dilated (did have mucosal laceration from endoscope) AND one intrinsic moderate stenosis at 38cm from incisor less than one cm in length and stenosis was traversed and dilator passed. * MODERATE esophagitis found in ENTIRE esophagus, suggestive of eosinophilic esophagitis. Biopsies were taken (6) and pathology pending which will need follow up Continue PPI IV BID, convert to PO in AM and plan for 8 week course. Consider/monitor for carafate Pureed diet, monitor tolerance Monitor labs/exam in AM and if tolerating diet will plan for discharge with outpatient follow up. (2) Hyponatremia: Plan: Mild, asymptomatic. Had been running 133-134 and was 131 on admission Urine/serum studies added as well as TSH which was wnl Na 133 on AM labs, IVF while NPO as above Notable is on sertraline at baseline Monitor BMP (3) Chronic kidney disease, stage 3: Plan: BUN/Cr 14/1.21 on admission, GFR 44 Renal dose meds/avoid nephrotoxins as able IVF as above while NPO, BMP in AM Plan Chronic stable medical conditions: CAD - aspirin, metoprolol held on admission while NPO until GI evaluation - Not on statin due to intolerance (muscle pain, increased CK levels) - Resuming aspirin, metoprolol for AM A-fibmetoprolol as above, not on anticoagulation. Per PCP note, reported in 2020 from note from prior PCP but EKGs back to 2006 without evidence for such and patient denied ever feeling afib/palpitations. BPHfinasteride, tamsulosin held until GI evaluation, now resumed Depression- zoloft resumed DVT proh: SCDs for now, no evidence for DVT Dispo: hopeful dc AM 12/28 with GI follow up pending diet tolerance Admission and Anticipated Discharge Date Admission Date: December 27, 2023 Supervising Physician Co-Signing Physician Notes The patient was not seen by me. The chart was reviewed. Case discussed with MADHAVI Acosta. Agree with assessment and plan Subjective Evaluated this afternoon, underwent EGD this morning. Daughter at bedside, patient lives with the son. GI reviewed EGD w/ Aguayo but no family present. Discussed findings, plan to continue PPI BID and await pathology. May need repeat dilation pending response and will need GI f/u at dc. Ordered pureed diet and will continue IVF until see how tolerates PO intake but can stop once taking adequate PO intake. Will plan to resume home meds. No fever/chills, chest pain or shortness of breath reported. Will plan for dc tomorrow if no issues overnight. Questions/concerns addressed at this time. Physical Exam Physical Exam: General: 88yo male sitting up in bed following EGD, family in room, NAD, tray just being delivered HEENT: head atraumatic, normocephalic, mmm, trachea midline Resp; even/unlabored, no significant w/c/r, on room air CV: RRR, no significant m/r/g, no pitting edema/calf tenderness GI: +BS, soft/NT no edwards MSK/Neuro: non focal, not confused, answering questions appropriately Psych: AOx3, cooperative with exam Results & Data Results & Data Vital Signs (Past 12 Hours) Vital Signs Temp Pulse Resp BP Pulse Ox O2 Del Method 12/28/23 12:10 36.7 C 62 16 163/70 H 95 Room Air 12/28/23 11:48 69 16 148/82 H 95 Room Air 12/28/23 11:36 76 18 129/71 97 Room Air 12/28/23 11:23 81 16 102/67 95 Room Air 12/28/23 10:02 36.7 C 80 16 170/74 H 96 Room Air 12/28/23 08:05 36.8 C 69 18 134/69 94 Room Air 12/27/23 19:26 36.7 C 64 16 162/72 H 93 Room Air 12/27/23 17:22 36.8 C 64 16 157/73 H 95 Room Air 12/27/23 14:45 95 Room Air 12/27/23 14:35 75 16 121/77 95 Room Air Intake and Output 12/27/23 12/28/23 12/28/23 22:59 06:59 14:59 Intake Total 129.5 / 129.5 Balance 129.5 / 129.5 Intake: IV 129.5 / 129.5 Sodium Chloride 0.9% 1,000 ml @ 129.5 / 129.5 70 mls/hr IV .[id number] [facility] Rx#: [id number] Other: Weight 75.7 kg Patient Weight 12/29/23 06:59 Weight 75.7 kg Laboratory Results 12/28/23 Range/Units 07:53 WBC 8.10 (4.8-10.8) K/ul RBC 5.07 (4.70-6.10) M/uL Hgb 13.9 L (14.0-18.0) g/dl Hct 40.5 L (42.0-52.0) % MCV 79.9 L (80.0-100.0) fL MCH 27.4 (25.0-34.0) pg MCHC 34.3 (32.0-36.0) g/dL RDW Std Deviation 36.6 (36.4-46.3) fL RDW Coeff of Alla 13.0 (11.5-14.5) % Plt Count 199 (130-400) K/uL MPV 9.9 (9.4-12.4) fL Sodium 133 L (136-145) mmol/L Potassium 4.1 (3.5-5.1) mmol/L Chloride 100 (98-107) mmol/L Carbon Dioxide 25 (21-32) mmol/L Anion Gap 8 (3-11) BUN 14 (6-23) mg/dl Creatinine 1.21 (0.6-1.4) mg/dl Est Cr Clr Drug Dosing 44.4 ml/min eGFR 57.95 BUN/Creatinine Ratio 11.6 (10-20) Glucose 103 H (70-99(Fasting)) mg/dl Osmolality 282 (280-300) mOsm/kg Calcium 9.3 (8.6-10.3) mg/dl Magnesium 1.9 (1.7-2.4) mg/dl Iron 49 (35-175) mcg/dl TIBC 318 (250-450) mcg/dl Unsaturated IBC 269 (155-355) mcg/dl Transferrin % Sat 15 L (20-50) % Ferritin 79.8 (8-388) ng/ml TSH 1.511 (0.300-4.500) uIu/ml PG Care Time/CCT Total # of Minutes Spent Total Time Spent with Patient: Total time spent is greater than 50% in coordination of care (as documented) at patient's floor/unit and/or counseling patient: Coding Level of Care Code 55280 SUB INP/OBS CARE 3/50MIN Diagnoses Esophageal dysmotility K22.4 Hyponatremia E87.1 Chronic kidney disease, stage 3 N18.30
[2023-12-28] MEDS: SODIUM CHLORIDE 0.9% 1,000 ML IV SCH (07:57)
[2023-12-28 08:27] LABS: BUN Creatinine Ratio 11.6 (10-20); Calcium 9.3 mg/dl (8.6-10.3); Creatinine Clr Calc Pharmacy 44.4 ml/min; Potassium 4.1 mmol/L (3.5-5.1)
[2023-12-28 08:33] LABS: Magnesium 1.9 mg/dl (1.7-2.4)
[2023-12-28 08:35] LABS: Hematocrit (blood only) 40.5 % (42.0-52.0); Hemoglobin 13.9 g/dl (14.0-18.0); Mean Corpuscular Hemoglobin 27.4 pg (25.0-34.0); Mean Corpuscular Hgb Conc 34.3 g/dL (32.0-36.0); Mean Corpuscular Volume 79.9 fL (80.0-100.0); Mean Platelet Volume 9.9 fL (9.4-12.4); Platelet Count 199 K/uL (130-400); RDW Standard Deviation 36.6 fL (36.4-46.3); Red Blood Count 5.07 M/uL (4.70-6.10)
[2023-12-28 08:48] LABS: Thyroid Stimulating Hormone 1.511 uIu/ml (0.300-4.500)
[2023-12-28 08:54] LABS: Ferritin 79.8 ng/ml (8-388)
[2023-12-28] MEDS: PANTOprazole 40 MG/10 ML SYR IV SCH ×2 (09:21→21:10)
--- NOTE | 2023-12-28 10:19 | Anesthesiology Consultation ---
Date of Service December 28, 2023 Assessment & Plan Chart Review Chart Review: Acceptable Risk for Surgery Consults Requested medical & cardiac Pulmonary ASA ASA3 Proposed Anesthesia Anesthesia Type: MAC Risk / Benefits Reviewed With: PT / POA / Parent / Guardian, Accepts Plan and Informed Consent Obtained History Surgery Operation Date: 12/28/23 16:30 Proposed Procedures p Esophagogastroduodenoscopy Stephon Szymanski MD Height/Weight Height: 5 ft 10 in Weight: 75.7 kg Allergies Allergy/AdvReac Type Severity Reaction Status Date / Time amoxicillin Allergy Unknown UPSET Verified 11/11/23 10:04 STOMACH clavulanic acid Allergy Unknown UPSET Verified 11/11/23 10:04 STOMACH Vlydick-NCV-LvB Reductase Allergy Unknown increased Verified 11/11/23 10:04 Inhibitor ck levels, [Pwslgxb-Ccq-Ssx Reductase muscle pain Inhibitor] Calcium Channel Blockers Allergy Mild CHEST PAIN Uncoded 11/11/23 10:04 Medications Home Medications Medication Instructions Recorded Confirmed Last Taken aspirin 81 mg chewable tablet 81 mg PO DAILY 11/22/17 12/27/23 Unknown mizwzozixrlr-fdndwxwh-qcyerj tablet 1 tab PO DAILY 11/22/17 12/27/23 Unknown calcium carbonate-vitamin D3 1 tab PO DAILY 03/22/19 12/27/23 Unknown [Calcium 600 with Vitamin D3] glucos sul 3SWq-fao-tsupb-C-Mn 1 tab PO DAILY 03/22/19 12/27/23 Unknown [Glucosamine Chondroitin] meclizine 25 mg tablet 25 mg PO DAILY PRN dizziness or 07/31/21 12/27/23 Unknown vertigo #30 tabs fluticasone 250 mcg-salmeterol 50 1 inh inhalation BID #3 ea 02/08/23 12/27/23 Unknown mcg/dose blistr powdr for inhalation nitroglycerin 0.4 mg sublingual 0.4 mg sublingual Q5M PRN chest 02/08/23 12/27/23 Unknown tablet (Nitrostat) pain #30 tabs finasteride 5 mg tablet 5 mg PO DAILY #90 tabs 04/22/23 12/27/23 Unknown tamsulosin 0.4 mg capsule 0.4 mg PO DAILY #90 caps 04/22/23 12/27/23 Unknown sertraline 50 mg tablet 50 mg PO DAILY #90 tabs 04/27/23 12/27/23 Unknown metoprolol succinate 50 mg 50 mg PO DAILY #90 tabs 10/18/23 12/27/23 Unknown tablet,extended release 24 hr sulindac 200 mg tablet 100 mg (1/2 x 200 mg) PO DAILY PRN 10/18/23 12/27/23 Unknown pain #45 tabs Active Medications Generic Name Dose Route Start Last Admin Trade Name Freq PRN Reason Stop Dose Admin Sodium Chloride 1,000 mls @ 70 mls/hr 12/28/23 07:45 12/28/23 09:48 Nss IV 12/28/23 22:02 0 mls/hr .[id number] SY Infusion Pantoprazole Sodium 40 mg in 10 mls @ 5 mls/min 12/28/23 09:00 12/28/23 09:21 Protonix IV 01/27/24 08:59 5 mls/min DAILY SY Administration NPO Date Last Intake of Fluids: 12/27/23 Time Last Intake of Fluids: 12:00 Date Last Intake of Solids: 12/26/23 Time Last Intake of Solids: 23:59 Past Medical History Medical History History of spinal stenosis Lumbar postlaminectomy syndrome Multinodular thyroid Sensorineural hearing loss (SNHL) of both ears Spinal stenosis, lumbar Exercise / Class Metabolic Activity II 4-5 Yardwork/Stairs/Walk up hill Past Family History Family History Denies family history of Ovarian cancer Prostate cancer Myocardial infarction Breast cancer Colorectal cancer Past Surgical History Surgical History History of lumbar surgery Past Anesthesia History No Hx of Anesthesia Complications and No Family Hx of Anesthesia Complications History of PONV No Hx of PONV and No Hx of Motion Sickness Social History Smoking Status: Never smoker Do You Dip or Chew Tobacco: No Hx Alcohol Use: No Hx Substance Use: No Physical Exam Vital Signs Last Vital Signs Temp 36.7 C 12/28/23 10:02 Pulse 80 12/28/23 10:02 Resp 16 12/28/23 10:02 BP 170/74 H 12/28/23 10:02 Pulse Ox 96 12/28/23 10:02 O2 Del Method Room Air 12/28/23 10:02 Constitutional no acute distress ENMT Mouth: + dentition abnormality and + edentulous Thyromental Distance: > or= 3.5 Finger Breadths Mallampati Class: II Neck normal visual inspection Respiratory normal respiratory effort; no respiratory distress Auscultation: lungs clear to auscultation bilaterally Cardiovascular Rate/Rhythm: regular rate and regular rhythm Heart Sounds: no murmur Musculoskeletal Spine: normal cervical ROM Psychiatric Orientation: alert and oriented x 3 Testing Laboratory Results 12/28/23 07:53 12/28/23 07:53 Electrocardiogram Findings: + NSR @ and + LBBB Day of Procedure Evaluation. Date of Surgery December 28, 2023 Height/Weight Height: 5 ft 10 in Weight: 75.7 kg Vital Signs Last Vital Signs Temp 36.7 C 12/28/23 10:02 Pulse 80 12/28/23 10:02 Resp 16 12/28/23 10:02 BP 170/74 H 12/28/23 10:02 Pulse Ox 96 12/28/23 10:02 O2 Del Method Room Air 12/28/23 10:02 Allergies Allergy/AdvReac Type Severity Reaction Status Date / Time amoxicillin Allergy Unknown UPSET Verified 11/11/23 10:04 STOMACH clavulanic acid Allergy Unknown UPSET Verified 11/11/23 10:04 STOMACH Yudaxwg-PLW-CzS Reductase Allergy Unknown increased Verified 11/11/23 10:04 Inhibitor ck levels, [Jwmcvxb-Gsk-Rbf Reductase muscle pain Inhibitor] Calcium Channel Blockers Allergy Mild CHEST PAIN Uncoded 11/11/23 10:04 Medications Home Medications Medication Instructions Recorded Confirmed Last Taken aspirin 81 mg chewable tablet 81 mg PO DAILY 11/22/17 12/27/23 Unknown nwzalzvhtoac-lepkibbf-mahjvp tablet 1 tab PO DAILY 11/22/17 12/27/23 Unknown calcium carbonate-vitamin D3 1 tab PO DAILY 03/22/19 12/27/23 Unknown [Calcium 600 with Vitamin D3] glucos sul 2BPh-vtf-mhhoz-C-Mn 1 tab PO DAILY 03/22/19 12/27/23 Unknown [Glucosamine Chondroitin] meclizine 25 mg tablet 25 mg PO DAILY PRN dizziness or 07/31/21 12/27/23 Unknown vertigo #30 tabs fluticasone 250 mcg-salmeterol 50 1 inh inhalation BID #3 ea 02/08/23 12/27/23 Unknown mcg/dose blistr powdr for inhalation nitroglycerin 0.4 mg sublingual 0.4 mg sublingual Q5M PRN chest 02/08/23 12/27/23 Unknown tablet (Nitrostat) pain #30 tabs finasteride 5 mg tablet 5 mg PO DAILY #90 tabs 04/22/23 12/27/23 Unknown tamsulosin 0.4 mg capsule 0.4 mg PO DAILY #90 caps 04/22/23 12/27/23 Unknown sertraline 50 mg tablet 50 mg PO DAILY #90 tabs 04/27/23 12/27/23 Unknown metoprolol succinate 50 mg 50 mg PO DAILY #90 tabs 10/18/23 12/27/23 Unknown tablet,extended release 24 hr sulindac 200 mg tablet 100 mg (1/2 x 200 mg) PO DAILY PRN 10/18/23 12/27/23 Unknown pain #45 tabs Active Medications Generic Name Dose Route Start Last Admin Trade Name Freq PRN Reason Stop Dose Admin Sodium Chloride 1,000 mls @ 70 mls/hr 12/28/23 07:45 12/28/23 09:48 Nss IV 12/28/23 22:02 0 mls/hr .[id number] SY Infusion Pantoprazole Sodium 40 mg in 10 mls @ 5 mls/min 12/28/23 09:00 12/28/23 09:21 Protonix IV 01/27/24 08:59 5 mls/min DAILY SY Administration Past Anesthesia History No Hx of Anesthesia Complications and No Family Hx of Anesthesia Complications History of PONV No Hx of PONV and No Hx of Motion Sickness NPO Date Last Intake of Fluids: 12/27/23 Time Last Intake of Fluids: 12:00 Date Last Intake of Solids: 12/26/23 Time Last Intake of Solids: 23:59 Home Medications Home Medications Medication Instructions Recorded Confirmed Last Taken aspirin 81 mg chewable tablet 81 mg PO DAILY 11/22/17 12/27/23 Unknown bhumldfhgdfb-bupihclf-vcsbym tablet 1 tab PO DAILY 11/22/17 12/27/23 Unknown calcium carbonate-vitamin D3 1 tab PO DAILY 03/22/19 12/27/23 Unknown [Calcium 600 with Vitamin D3] glucos sul 8DRw-vhs-srvuo-C-Mn 1 tab PO DAILY 03/22/19 12/27/23 Unknown [Glucosamine Chondroitin] meclizine 25 mg tablet 25 mg PO DAILY PRN dizziness or 07/31/21 12/27/23 Unknown vertigo #30 tabs fluticasone 250 mcg-salmeterol 50 1 inh inhalation BID #3 ea 02/08/23 12/27/23 Unknown mcg/dose blistr powdr for inhalation nitroglycerin 0.4 mg sublingual 0.4 mg sublingual Q5M PRN chest 02/08/23 12/27/23 Unknown tablet (Nitrostat) pain #30 tabs finasteride 5 mg tablet 5 mg PO DAILY #90 tabs 04/22/23 12/27/23 Unknown tamsulosin 0.4 mg capsule 0.4 mg PO DAILY #90 caps 04/22/23 12/27/23 Unknown sertraline 50 mg tablet 50 mg PO DAILY #90 tabs 04/27/23 12/27/23 Unknown metoprolol succinate 50 mg 50 mg PO DAILY #90 tabs 10/18/23 12/27/23 Unknown tablet,extended release 24 hr sulindac 200 mg tablet 100 mg (1/2 x 200 mg) PO DAILY PRN 10/18/23 12/27/23 Unknown pain #45 tabs Active Medications Generic Name Dose Route Start Last Admin Trade Name Freq PRN Reason Stop Dose Admin Sodium Chloride 1,000 mls @ 70 mls/hr 12/28/23 07:45 12/28/23 09:48 Nss IV 12/28/23 22:02 0 mls/hr .[id number] SY Infusion Pantoprazole Sodium 40 mg in 10 mls @ 5 mls/min 12/28/23 09:00 12/28/23 09:21 Protonix IV 01/27/24 08:59 5 mls/min DAILY SY Administration Exercise / Class Metabolic Activity Metabolic Activity: II 4-5 Yardwork/Stairs/Walk up hill Physical Exam Constitutional: no acute distress Mouth: + dentition abnormality and + edentulous Thyromental Distance: > or= 3.5 Finger Breadths Mallampati Class: II Neck: + visual inspection normal Respiratory: + respiratory effort normal and + clear to auscultation bilaterally; no respiratory distress Cardiovascular: + regular rate and + regular rhythm; no murmur Musculoskeletal: no limited cervical ROM Psychiatric: + alert and + oriented x 3 ASA ASA3 Proposed Anesthesia Proposed Anesthesia: MAC Risk / Benefits Reviewed With: PT / POA / Parent / Guardian, Accepts Plan and Informed Consent Obtained
--- NOTE | 2023-12-28 10:41 | Gastrointestinal Consultation ---
Date of Consultation December 28, 2023 Assessment & Plan (1) Esophageal dysmotility: (2) Dysphagia: Plan -Keep NPO for EGD today. -Add Protonix 40 mg BID. -Further recommendations pending results of testing. Supervising Physician Co-Signing Physician Notes I examined the patient and reviewed patient's chart , laboratory data and imaging studies. I agree with with assessment and plan of care as suggested by advanced practice provider. History of Present Illness Reason for Consultation: Esophageal dysmotility, ?EGD Attending Physician: Jerry Phan MD History of Present Illness Patient is an 88 yo male with PMH of CAD, HTN, Afib, anxiety & CKD. He was brought to the ED by family members after they noted he couldn't swallow food/drink. He had an outpatient video swallow study with [facility] in October 2023 that showed oral stage dysphagia & concern for esophageal dysmotility. Recommendations were for thin liquids, normal diet with extra gravy & sauces. He notes that for many months he has been struggling with solid food. He notes that last night he was unable to swallow water and was coughing/choking. He denies heartburn or reflux. No masses noted on video swallow imaging study. He denies history in the family of esophageal concerns. He does use steroid inhalers. Allergies Allergy/AdvReac Type Severity Reaction Status Date / Time amoxicillin Allergy Unknown UPSET Verified 11/11/23 10:04 STOMACH clavulanic acid Allergy Unknown UPSET Verified 11/11/23 10:04 STOMACH Qfuwwlz-FQE-FgQ Reductase Allergy Unknown increased Verified 11/11/23 10:04 Inhibitor ck levels, [Dyejtqw-Lfk-Dwp Reductase muscle pain Inhibitor] Calcium Channel Blockers Allergy Mild CHEST PAIN Uncoded 11/11/23 10:04 Home Medications Medication Instructions Recorded Confirmed Type aspirin 81 mg chewable tablet 81 mg PO DAILY 11/22/17 12/27/23 History hgpvzmwiaoke-drwgewfa-lpgixi tablet 1 tab PO DAILY 11/22/17 12/27/23 History calcium carbonate-vitamin D3 1 tab PO DAILY 03/22/19 12/27/23 History [Calcium 600 with Vitamin D3] glucos sul 1NCi-tsy-ntsii-C-Mn 1 tab PO DAILY 03/22/19 12/27/23 History [Glucosamine Chondroitin] meclizine 25 mg tablet 25 mg PO DAILY PRN dizziness or 07/31/21 12/27/23 Rx vertigo #30 tabs fluticasone 250 mcg-salmeterol 50 1 inh inhalation BID #3 ea 02/08/23 12/27/23 Rx mcg/dose blistr powdr for inhalation nitroglycerin 0.4 mg sublingual 0.4 mg sublingual Q5M PRN chest 02/08/23 12/27/23 Rx tablet (Nitrostat) pain #30 tabs finasteride 5 mg tablet 5 mg PO DAILY #90 tabs 04/22/23 12/27/23 Rx tamsulosin 0.4 mg capsule 0.4 mg PO DAILY #90 caps 04/22/23 12/27/23 Rx sertraline 50 mg tablet 50 mg PO DAILY #90 tabs 04/27/23 12/27/23 Rx metoprolol succinate 50 mg 50 mg PO DAILY #90 tabs 10/18/23 12/27/23 Rx tablet,extended release 24 hr sulindac 200 mg tablet 100 mg (1/2 x 200 mg) PO DAILY PRN 10/18/23 12/27/23 Rx pain #45 tabs Patient History Medical History Sensorineural hearing loss (SNHL) of both ears Lumbar postlaminectomy syndrome Spinal stenosis, lumbar Multinodular thyroid History of spinal stenosis Surgical History History of lumbar surgery Family History Denies family history of Ovarian cancer Prostate cancer Myocardial infarction Breast cancer Colorectal cancer Social History Smoking Status: Never smoker Second Hand Exposure: Yes; Do You Dip or Chew Tobacco: No; Hx Alcohol Use: No Hx Substance Use: No Preferred Language: Greenlandic Visual Impairment: No Limitations Hearing Ability: Use of Hearing Aid marital status: / Current Living Situation: Family current occupational status: retired Feels Safe at Home: Yes Childhood Exposure to Second-Hand Smoke: Yes Dental Care, Regularly: No Physical Activity Frequency: Does not Exercise Seatbelt Use: always Sunscreen Use: Yes Review of Systems Constitutional: no fever and no chills Respiratory: + cough; no dyspnea Gastrointestinal: + dysphagia; no abdominal pain, no heart burn, no vomiting and no hematemesis Psychiatric: no problem reported Physical Exam Constitutional: no acute distress Respiratory: normal respiratory effort Cardiovascular: Rate/Rhythm: regular rate Gastrointestinal (Abdomen): normal bowel sounds, soft, nontender, no hepatosplenomegaly Psychiatric: Orientation: alert and oriented x 3 Results & Data Vital Signs (Past 12 Hours) Vital Signs Temp Pulse Resp BP Pulse Ox O2 Del Method 12/28/23 10:02 36.7 C 80 16 170/74 H 96 Room Air 12/28/23 08:05 36.8 C 69 18 134/69 94 Room Air PG Care Time/CCT Total # of Minutes Spent Total Time Spent with Patient: Total time spent is greater than 50% in coordination of care (as documented) at patient's floor/unit and/or counseling patient: Coding Level of Care Code 12181 INT INP/OBS CARE 3/75MIN Diagnoses Esophageal dysmotility K22.4 Dysphagia R13.10
--- NOTE | 2023-12-28 11:25 | GI REPORT ---
[facility] Patient: STACI MORALES : 1935 Sex at : Male Age: 88 Years Procedure: Upper GI endoscopy Date: 12/28/2023 Attending Physician: Doug Szymanski MD Referring MD: Jerry Phan Indications: - Dysphagia Medications: - Monitored Anesthesia Care Complications: - No immediate complications. Estimated Blood Loss: - Estimated blood loss: None. Procedure: - The egd scope was introduced through the mouth and advanced to the second part of the duodenum. - The upper GI endoscopy was accomplished without difficulty. - The patient tolerated the procedure well. Findings: - The Z-line was regular and was found 38 cm from the incisors. - One benign-appearing stenosis was found. The stenosis was traversed. There was a resistance to the passage of the endoscope at the cricopharyngeus. Mucosal laceration resulted from the passage of the endoscope. A TTS dilator was passed through the scope. Dilation with a 2 mm x 5.5 cm Merit Elation balloon (to a maximum balloon size of 12 mm) dilator was performed. The dilation site was examined and showed mucosal laceration. - One benign-appearing, intrinsic moderate stenosis was found 38 cm from the incisors. This stenosis measured 12 mm (inner diameter) x less than one cm (in length). The stenosis was traversed. A TTS dilator was passed through the scope. Dilation with a 10-11-12 mm x 5.5 cm Merit Elation balloon (to a maximum balloon size of 12 mm) dilator was performed. - Moderate esophagitis was found in the entire esophagus. The appearance was suggestive of eosinophilic or lymphocytic esophagitis. 6 esophageal biopsies were obtained. - The entire examined stomach was normal. - The examined duodenum was normal. Impression: - Z-line regular, 38 cm from the incisors. - Esophageal stenosis. Dilated with a 10-11-12 mm x 5.5 cm Merit Elation balloon (to a maximum balloon size of 12 mm). - There was a resistance to the passage of the endoscope at the cricopharyngeus. Because the laceration resulted from the the endoscope. - Benign-appearing esophageal stenosis. Dilated with a 10-11-12 mm x 5.5 cm Merit Elation balloon (to a maximum balloon size of 12 mm). - Moderate non-erosive esophagitis. - The appearance was suggestive of eosinophilic or lymphocytic esophagitis. 6 esophageal biopsies were obtained. - Normal stomach. - Normal examined duodenum. - No specimens collected. Recommendation: - Await pathology results. - Return to GI office in 3 weeks. - If symptoms of dysphagia persist repeat EGD with esophageal dilatation. - Soft/pur?ed diet. - Will arrange for a follow-up at the GI office. Procedure Code(s): - 25509, Esophagogastroduodenoscopy, flexible, transoral; with transendoscopic balloon dilation of esophagus (less than 30 mm diameter) Diagnosis Code(s): - R13.10, Dysphagia, unspecified - K22.2, Esophageal obstruction - K20.80, Other esophagitis without bleeding CPT(R) - 2023 copyright [employer]. All Rights Reserved. The CPT codes, CCI edits and ICD codes generated are intended as suggestions and were generated based on input data. These codes are preliminary and upon lactation nurse review may be revised to meet current compliance and payer requirements. The provider is responsible for the final determination of appropriate codes, and modifiers. Doug Szymanski M.D. , This document has been electronically signed. Note Initiated:12/28/2023 Note Completed:12/28/2023 11:24 AM \\[id number]
--- NOTE | 2023-12-28 11:50 | Electrocardiogram Report ---
Test Reason : Blood Pressure : */* mmHG Vent. Rate : 77 BPM Atrial Rate : * BPM P-R Int : * ms QRS Dur : 160 ms QT Int : 416 ms P-R-T Axes : * 30 201 degrees QTcB Int : 470 ms Sinus rhythm Left bundle branch block Abnormal ECG Confirmed by Quincy Kendrick ([id number]) on 12/28/2023 11:50:03 AM Referred By: REFERRED SELF Confirmed By: Quincy Kendrick
[2023-12-28] MEDS: PROPOFOL IV EMULSION 10 MG/ML 20 ML VIAL IV ONE (12:05)
[2023-12-28] MEDS: LIDOCAINE 2% 2 ML VIAL/AMP(20MG/ML) INFIL ONE (12:05)
--- NOTE | 2023-12-28 15:15 | Anesthesiology Progress Note ---
Date of Service December 28, 2023 Anesthesia Post Procedure Vital Signs Vital Signs: Temp Pulse Resp BP Pulse Ox O2 Del Method 12/28/23 12:10 36.7 C 62 16 163/70 H 95 Room Air 12/28/23 11:48 69 16 148/82 H 95 Room Air 12/28/23 11:36 76 18 129/71 97 Room Air 12/28/23 11:23 81 16 102/67 95 Room Air 12/28/23 10:02 36.7 C 80 16 170/74 H 96 Room Air 12/28/23 08:05 36.8 C 69 18 134/69 94 Room Air 12/27/23 19:26 36.7 C 64 16 162/72 H 93 Room Air 12/27/23 17:22 36.8 C 64 16 157/73 H 95 Room Air Transfer of Care Handoff Completed per policy Notes Mental Status: alert / awake / arousable and participated in evaluation Nausea / Vomiting: adequately controlled Pain: adequately controlled Airway Patency, RR, SpO2: stable & adequate BP & HR: stable & adequate Hydration State: stable & adequate Anesthetic Complications: no major complications apparent and Pt Satisfied with anesthetic care
[2023-12-28 15:28] VITALS: TEMP 97.5
[2023-12-28] MEDS: TAMSULOSIN HCL 0.4 MG CAP PO SCH (21:09)
[2023-12-29 06:12] LABS: BUN Creatinine Ratio 13.9 (10-20); Calcium 8.8 mg/dl (8.6-10.3); Creatinine Clr Calc Pharmacy 46.7 ml/min; Magnesium 1.9 mg/dl (1.7-2.4)
[2023-12-29 07:43] VITALS: BP 135/71; PULSE 84; RESP 16; O2SAT 96
[2023-12-29] MEDS: FLUTICASONE/VILANTEROL 200/25MCG 14 PUFFS/INHALER INH SCH (08:29)
[2023-12-29] MEDS: FINASTERIDE 5 MG TAB PO SCH (08:30)
[2023-12-29] MEDS: METOPROLOL TARTRATE 50 MG TAB PO SCH (08:30)
[2023-12-29] MEDS: ASPIRIN 81 MG ECTAB PO SCH (08:31)
[2023-12-29] MEDS: SERTRALINE HCL 50 MG TABLET PO SCH (08:31)
--- NOTE | 2023-12-29 08:59 | Hospitalist Progress Note ---
Date of Service December 29, 2023 Assessment & Plan (1) Esophageal dysmotility: Plan: Presents with worsening swallowing function over the last 24 hours. Recent Fluoro Swallow Study 11/22/23 - mild oral stage dysphagia and esophageal dysmotility and reflux. Recommend Regular diet, thin liquids with extra sauce/gravy. Pending outpatient GI follow up. Neck CT: No acute abnormality, no mass CXR: no acute cardiopulmonary findings keep n.p.o., strict, protonix 40mg IV and GI consulted -Pt is on inhaled corticosteroid - risk for thrush -GLOBAL SALES MANAGER eval deferred on admission pending GI consult and recent GLOBAL SALES MANAGER eval 12/27 Added NS @ 70cc/hr while NPO. Na stable 133, TSH checked and wnl. Protonix IVP daily ordered, GI consulted and messaged this morning and planning for EGD this afternoon. PPI increased to BID s/p EGD w/ Dr Szymanski 12/27 * EGD with one esophageal stenosis which was dilated (did have mucosal laceration from endoscope) AND one intrinsic moderate stenosis at 38cm from incisor less than one cm in length and stenosis was traversed and dilator passed. * MODERATE esophagitis found in ENTIRE esophagus, suggestive of eosinophilic esophagitis. Biopsies were taken (6) and pathology pending which will need follow up Continue PPI IV BID, convert to PO in AM and plan for 8 week course. Consider/monitor for carafate Pureed diet, monitor tolerance Monitor labs/exam in AM and if tolerating diet will plan for discharge with outpatient follow up. 12/28 -- tolerated pureed diet, plan to advance to easy to chew diet. if tolerates will plan for discharge on PPI BID and have outpatient follow up for GI regarding pathology (2) Hyponatremia: Plan: Mild, asymptomatic. Had been running 133-134 and was 131 on admission Urine/serum studies added as well as TSH which was wnl Na 133 on AM labs, IVF while NPO as above Notable is on sertraline at baseline Monitor BMP (3) Chronic kidney disease, stage 3: Plan: BUN/Cr 14/1.21 on admission, GFR 44 Renal dose meds/avoid nephrotoxins as able IVF as above while NPO, BMP in AM Plan Chronic stable medical conditions: CAD - aspirin, metoprolol held on admission while NPO until GI evaluation - Not on statin due to intolerance (muscle pain, increased CK levels) - Resuming aspirin, metoprolol for AM A-fibmetoprolol as above, not on anticoagulation. Per PCP note, reported in 2020 from note from prior PCP but EKGs back to 2006 without evidence for such and patient denied ever feeling afib/palpitations. BPHfinasteride, tamsulosin held until GI evaluation, now resumed Depression- zoloft resumed DVT proh: SCDs for now, no evidence for DVT Dispo: hopeful dc AM 12/28 with GI follow up pending diet tolerance Admission and Anticipated Discharge Date Admission Date: December 27, 2023 Results & Data Results & Data Vital Signs (Past 12 Hours) Vital Signs Temp Pulse Resp BP Pulse Ox O2 Del Method 12/29/23 07:42 36.4 C L 84 16 135/71 96 Room Air PG Care Time/CCT Total # of Minutes Spent Total Time Spent with Patient: Total time spent is greater than 50% in coordination of care (as documented) at patient's floor/unit and/or counseling patient: Coding Diagnoses Esophageal dysmotility K22.4 Hyponatremia E87.1 Chronic kidney disease, stage 3 N18.30
--- NOTE | 2023-12-29 12:18 | Discharge Summary ---
Discharge Summary Date of Service December 29, 2023 Principal Dx & Hospital Course #1 = Principal Diagnosis (1) Esophageal dysmotility: Presents with worsening swallowing function over the last 24 hours. Recent Fluoro Swallow Study 11/22/23 - mild oral stage dysphagia and esophageal dysmotility and reflux. (Recommended Regular diet, thin liquids with extra sauce/gravy. Pending outpatient GI follow up. ) Neck CT: No acute abnormality, no mass CXR: no acute cardiopulmonary findings Admitted and made NPO, Protonix IV provided and GI consultation placed and protonix increased to BID and underwent EGD for further evaluation and IVF added while NPO. TSH wnl/ s/p EGD w/ Dr Szymanski 12/27 * EGD with one esophageal stenosis which was dilated (did have mucosal laceration from endoscope) AND one intrinsic moderate stenosis at 38cm from incisor less than one cm in length and stenosis was traversed and dilator passed. * MODERATE esophagitis found in ENTIRE esophagus, suggestive of eosinophilic esophagitis. * Biopsies were taken (6) and pathology pending which will need follow up Patient was provided pureed diet and advanced to easy to chew diet without issue and was continued on PPI BID. At discharge, continued PPI protonix 40mg PO BID and GI to arrange for outpatient follow up. Encouraged to avoid citrus/spicy foods for now to prevent irritation but looking/feeling much better. Updated family at bedside prior to discharge (2) Esophageal stricture: as above, s/p dilation w/ GI and outpt GI f/u to be arranged (3) Hyponatremia: Mild, asymptomatic. Had been running 133-134 and was 131 on admission. TSH wnl. Urine Na elevated but is on sertraline and could have some SIADH from such as well as suspected mild dehydration from lack of PO intake and improved with IVF to 134. Improved PO intake and asymptomatic from such and can f/u outpatient w/ PCP (4) Chronic kidney disease, stage 3: Stable, BUN/Cr 14/1.21 on admission and IVF support while NPO and renal dosed meds/avoided nephrotoxins as able and BUN/Cr 18/1.15 prior to discharge Plan Chronic stable medical conditions: CAD - aspirin, metoprolol held on admission while NPO until GI evaluation but resumed following. Not on statin due to intolerance (muscle pain, increased CK levels) A-fibmetoprolol as above, not on anticoagulation. Per PCP note, reported in 2020 from note from prior PCP but EKGs back to 2006 without evidence for such and patient denied ever feeling afib/palpitations. BPHfinasteride, tamsulosin held until GI evaluation, now resumed/continued Depression- zoloft continued DVT proh: SCDs utilized, no evidence for DVT on exam Dispo: DC home w/ family on PPI BID, GI f/u outpt Notes For Next Care Provider Ensure follow up on pathology from EGD regarding possible EoE Monitor for any cdiff on new PPI BID Medication Changes From Visit Protonix 40mg PO BID Admission HPI Per Admitting Provider Aguayo is 88M with a past medical hx of CAD, hypertension, A-fib, anxiety and CKD. who presents to the ER, accompanied by son and daughter, after worsening swallowing function over the last 24 hours. He was seen by his PCP on 11/10 and reported swallowing dysfunction was ordered a video swallow study at that time that had concerns for esophageal dysmotility but recommended thin liquids normal diet with extra gravy/sauces. Starting overnight he woke up in the middle of the night and had difficulty swallowing water. Son reports that he could hear him coughing and choking from the next room and reports that Aguayo asked to see his doctor multiple times. Since then Aguayo has been able to eat some pudding and take his medications. No recent changes in medications. No changes in baseline mental status. No signs of infection no abdominal pain no urinary symptoms no cough or fevers at home. Recent changes in medications: No Take medications today: yes Alcohol: no smoking: no CPAP: no Code Status: DNR/DNI ER course: none Admission Exam Per Admitting Provider General: NAD, VS as above HEENT: MMM, trachea midline, no obvious masses, non tender to palpation, no lymphadenopathy Resp: normal respiratory effort, lungs clear to auscultation CV: RRR, no murmur, Abd: normal bowel sounds, non tender, no hepatosplenomegaly Extremities: Moves all extremities, no edema Discharge Exam General: 88yo male sitting up in bed following EGD, family in room, NAD, tray just being delivered HEENT: head atraumatic, normocephalic, mmm, trachea midline Resp; even/unlabored, no significant w/c/r, on room air CV: RRR, no significant m/r/g, no pitting edema/calf tenderness GI: +BS, soft/NT no edwards MSK/Neuro: non focal, not confused, answering questions appropriately Psych: AOx3, cooperative with exam Discharge Plan Discharge Items Patient Disposition: Home - Self-Care Reason For Visit: ESOPHAGEAL DYSMOTILITY Discharge Diagnosis: Esophageal stricture, possible eosinophilic esophagitis Goals: You have been hospitalized for an acute medical problem. During your stay at [facility], we have made an effort to correct the problem that brought you to the hospital while keeping you as comfortable as possible. Medications were used to bring your condition under control and your discharge instructions will include directions for any medications you should take after leaving the hospital. Please make sure you see your Primary Care Provider as part of your follow up plan. Activity: Resume your previous activity Non-emergency contact: Primary Care Provider and Cushion Gum Applicator Call non-emergency contact if: you have any medication questions, your symptoms worsen and your pain is not controlled Follow-up/Referrals: Candelaria Smith MD [Primary Care Provider] - 01/05/24 10:30 am Doug Szymanski MD [Physician] - (SPOKE WITH CATARINA AT THE OFFICE; SHE WILL FORWARD MESSAGE TO [facility] WHO WILL CALL THE PATIENT WITH A HOSPITAL FOLLOW UP VISIT.) Diet: Heart Healthy Diet Texture: Easy to Chew Addtl Attending Provider Instructions: You have been hospitalized for issues with swallowing. GI was consulted and you underwent endoscopy which showed irritation as well as TWO strictures which were dilated for improvement. They did take some biopsies as well but pathology may take a week to come back and GI will arrange for follow up at discharge to see if pathology is positive for process called eosinophilic esophagitis which is treated with acid suppressants and have been ordered while you have been i the hospital with improvement. We are continuing you on pantoprazole (protonix) TWICE daily for 8 weeks in the meantime and additional medications can be added You should avoid spicy foods/citrus that can irritate your esophagitis for the time being and can continue easy to chew diet with continued aspiration precautions. Please follow up with primary care after discharge to monitor your status and coordinate care. Please return to the ER with any worsening swallowing or inability to tolerate/keep up with oral intake. It has been a pleasure being a part of the medical team providing for you while you have been in the hospital. Take care! Pending Studies at Discharge: Yes Studies:: EGD pathology Stand-Alone Forms: My [facility], Smoking Cessation Medications and DC Order Prescriptions: New pantoprazole 40 mg tablet,delayed release (DR/EC) 40 mg PO BID Qty: 60 1RF Continued aspirin 81 mg tablet,chewable 81 mg PO DAILY crupnguauofv-yjqjfkcq-whwvcz tablet 1 tab PO DAILY fluticasone propion-salmeterol 250-50 mcg/dose blister with device 1 inh inhalation BID Qty: 3 3RF nitroglycerin [Nitrostat] 0.4 mg tablet, sublingual 0.4 mg SL Q5M PRN (Reason: chest pain) Qty: 30 0RF Rx Instructions: no fill history available metoprolol succinate 50 mg tablet extended release 24 hr 50 mg PO DAILY Qty: 90 3RF sulindac 200 mg tablet 100 mg PO DAILY PRN (Reason: pain) Qty: 45 3RF meclizine 25 mg tablet 25 mg PO DAILY PRN (Reason: dizziness or vertigo) Qty: 30 0RF finasteride 5 mg tablet 5 mg PO DAILY Qty: 90 3RF tamsulosin 0.4 mg capsule 0.4 mg PO DAILY Qty: 90 3RF calcium carbonate-vitamin D3 1 tab PO DAILY Rx Instructions: 1 tablet PO daily; glucos sul [id number]-[id number] 1 tab PO DAILY Rx Instructions: 1 tablet PO daily; sertraline 50 mg tablet 50 mg PO DAILY Qty: 90 3RF Rx Instructions: 1 tablet at night Discharge Orders: Discharge Order (Routine); Ordered 12/29/23 Ordered By: Elaine Navarrete/Other Patient Handouts: Falls Prevent Use Cane Walker Admission Data Admit Date/Time: 12/27/23 12:18 Attending Provider: Jerry Phan Admit Provider: Amor Ty Primary Care Provider: Candelaria Smith Other Providers: Amor Ty; Doug Szymanski Other Interventions: Discharge Summary Assessment (RN) Last Done: 12/29/23 12:44 Hospital Stay Data Consultations 12/27/23 11:25 ED Decision to Admit Stat 12/27/23 11:56 Consult Gastroenterology Routine Procedures Performed Operation Date: 12/28/23 16:30 Actual Procedures p EGD Biopsy Dilatation - Doug Szymanski MD Diagnostic Imagining Performed Chest X-Ray 12/27/23 08:23 XR chest 1V portable CLINICAL HISTORY: Choking, aspiration COMPARISON STUDY: Chest radiograph July 31, 2015. Chest CT August 15, 2007. FINDINGS: There is mild elevation of the left hemidiaphragm. Lungs are clear. There is no pneumothorax or pleural effusion. Cardiac size is normal. Mediastinal contours are normal. There is no evidence for pulmonary edema. IMPRESSION: No acute cardiopulmonary findings. ACT 112: Negative or not required by law. Electronically signed by: Jean-Pierre Calderon M.D. 12/27/2023 8:53 AM Soft Tissue Neck CT 12/27/23 08:57 CT soft tissue neck w con CLINICAL HISTORY: Difficulty swallowing Technique: Axial CT images of the soft tissues of the neck were obtained following intravenous administration of 100 cc of Omnipaque 300. Automated dose lowering techniques and/or adjustment according to patient size were utilized for this exam. Comparison: None available at the time of this dictation. Findings: The oropharynx, hypopharynx, larynx, and trachea are patent. Subcentimeter lymph nodes are seen. The parotid glands, submandibular glands, and thyroid gland are unremarkable. Imaged portions of the brain parenchyma are unremarkable. Sphenoid sinus disease is seen. Impression: No acute abnormality and in particular no mass lesion to explain difficulty swallowing. ACT 112: Negative or not required by law. Electronically signed by: Abimael Marquez M.D. 12/27/2023 10:18 AM Discharge Instructions Given to Patient (Per Discharging Provider) You have been hospitalized for issues with swallowing. GI was consulted and you underwent endoscopy which showed irritation as well as TWO strictures which were dilated for improvement. They did take some biopsies as well but pathology may take a week to come back and GI will arrange for follow up at discharge to see if pathology is positive for process called eosinophilic esophagitis which is treated with acid suppressants and have been ordered while you have been i the hospital with improvement. We are continuing you on pantoprazole (protonix) TWICE daily for 8 weeks in the meantime and additional medications can be added You should avoid spicy foods/citrus that can irritate your esophagitis for the time being and can continue easy to chew diet with continued aspiration preca utions. Please follow up with primary care after discharge to monitor your status and coordinate care. Please return to the ER with any worsening swallowing or inability to tolerate/keep up with oral intake. It has been a pleasure being a part of the medical team providing for you while you have been in the hospital. Take care! Supervising Physician Co-Signing Physician Notes The patient was not seen by me. The chart was reviewed. Case discussed with MADHAVI Acosta. Agree with assessment and plan Total Time Total Time Spent Total Time Spent (In Minutes): 40 Coding Level of Care Code 73239 INP/OBS DISCH >30 MIN Diagnoses Esophageal dysmotility K22.4 Esophageal stricture K22.2 Hyponatremia E87.1 Chronic kidney disease, stage 3 N18.30
== END 2023-12-29 13:01 | disposition home or self-care (01) ==
LOC: EDINP 07:23 → ED 07:23 → SUATTDRO 12:18 → 3N 14:26